=== PATIENT | female | born 1985 | race Caucasian/White ===

== ENCOUNTER 2024-09-22 10:35 | Outpatient (AMB) | payer OTHER, SELFPAY ==
--- NOTE | 2024-09-22 11:12 | MHC.OFFVIS ---
Vital Signs 09/22/24 11:19 Height 5 ft 2 in Weight 154 lb 1.65 oz BMI 28.2 BP 120/80 Blood Pressure Location Rt brachial Position Sitting Respiration 16 Pulse 64 Pulse Source Pulse Oximeter Pulse Oximetry (%) 97 Oxygen Delivery Method Room Air Intake Visit Reasons: Arthralgia Intake Note: Patient presents for Arthralgia. I feel joint pain and lower mid back pain. Feel pain on my neck, both shoulders and both knees. Tingling sensation on my neck sometimes. Allergies environmental allergies Allergy (Mild, Verified 09/22/24 11:10) Eye Swelling lorazepam Allergy (Mild, Verified 09/22/24 11:09) Confusion Atlvan Allergy (Mild, Uncoded 09/22/24 11:09) Headache Medication List - Last Reconciled 09/22/24 by Tray Alcocer MD linaclotide (Linzess) 290 mcg PO DAILY omeprazole 20 mg PO DAILY HPI HPI Arthralgia: Details: She was on HCQ, MTX and FA for diagnosis of spondyloarthritis with HLA b27 positivity by PA rheumatology actually did consult hospital. When the PA left practice, she saw a provider who took her off her DMARD regimen leading to knee swelling. She had a joint aspiration but was not restarted on DMARD therapy. For the last 2 years she has not seeked rheumatology care. She has stiffness in joints for months with knee swelling prior to seeing [facility] Rheumatology at [facility]. She was unable to move her joints. She continues to have pain and stiffness in her joints in her hands and her knees. She reports intermittent swelling in her knees. Lower back pain for 10 years and neck pain with tingling sensation. No buttocks pain or stiffness. No hx IBD. No iritis. No psoriasis. MS hours or can last all day. Using tylenol 650mg once or twice a day PRN pain. Takes Ibuprofen when pain is intense. She avoids NSAIDs due to exacerbation of underlying IBS. R hip pain (groin or lateral) is greater than left hip. Hx of recurrent knee 'sprain' presenting with knee swelling. When she was a teenager she used to have knee swelling that would occur spontaneously. She would be on crutches for at least a week and a half and the swelling would subside. She recalls using NSAIDs to help with knee pain and swelling. She denies mitral prolapse, uterine prolapse, aneurysms. Her maternal aunt may have SLE. PFSH Surgical History (Updated 09/22/24 @ 11:30 by EZRA Mackenzie) History of wisdom tooth extraction History of nasal surgery History of oral surgery History of breast surgery H/O adenoidectomy History of tonsillectomy History of section complicating Family History (Updated 09/22/24 @ 11:16 by EZRA Mackenzie) Mother Cancer Father Past heart attack Stroke Social History (Updated 09/22/24 @ 11:15 by EZRA Mackenzie) Household Members: Family Housing: House Alcohol intake: current Comment: [facility] Patient Tobacco Use Status: Current someday Tobacco user Cigarettes Per Day: 0.25 Years Smoked: 25 Review of Systems Const All systems reviewed & are unremarkable except as noted in HPI and below Physical Exam Vital Signs: Last Vital Signs Pulse 64 09/22/24 11:19 Resp 16 09/22/24 11:19 BP 120/80 09/22/24 11:19 Pulse Ox 97 09/22/24 11:19 Oxygen Delivery Method Room Air 09/22/24 11:19 BMI result Body Mass Index 28.2 Const Other: General: Comfortable CVS: RRR Respiratory: clear to auscultation bilaterally. Good respiratory effort Skin: No lesions seen MSK: [place] score 4 (bilateral passive apposition of thumbs to forearms, right passive hyperextension of 5th MCP greater than 90 degrees, bilateral active hyperextension of elbows greater than 10 degrees), tenderness of right 2nd MCP. No synovitis present. Good range of motion of upper extremities and lower extremities. Bilateral trochanteric bursa tenderness was found. Negative MAGALY. No MTP tenderness was found. Tender to palpate cervical spinous process or paraspinal muscles. Tender to palpate midthoracic to lower lumbar spinous process or paraspinal muscles. R SI joint tenderness. Assessment & Plan Assessment & Plan (1) Spondyloarthritis: Comment: She has history of HLA B27 positivity diagnosed with spondyloarthropathy presenting with joint stiffness, childhood swelling in knees and polyarthralgias previously treated with methotrexate and hydroxychloroquine with benefit in providing remission. At present she has polyarthralgias and stiffness with intermittent knee swelling. She meets criteria for benign hypermobility syndrome, which may be contributing to polyarthralgias. I will obtain labs and x-rays baseline to evaluate for disease activity. Code(s): M47.819 - Spondylosis without myelopathy or radiculopathy, site unspecified Category: Medical Plan: Labs ordered X-rays ordered Return to clinic in 1-2 months (2) Back pain: Comment: Chronic 10 year history without inflammatory features. We will obtain x-ray for further evaluation of joint pathology. Myofascial strain is contributing to pain. Code(s): M54.9 - Dorsalgia, unspecified Category: Medical Plan: X-rays ordered. (3) Neck pain: Comment: Acute onset neck pain lasting 3 weeks. Myofascial strain is contributing to pain. X-ray ordered to evaluate for joint pathology that may be contributing. Code(s): M54.2 - Cervicalgia Category: Medical Plan: X-ray C-spine ordered (4) Benign hypermobility syndrome: Comment: Discussed diagnosis and management. Code(s): M35.7 - Hypermobility syndrome Category: Medical Plan: She will continue to take Tylenol 1-2 tablets as needed for pain control. She will benefit from physical rehabilitation for joint strengthening We will await labs and x-ray prior to PT referral Return to clinic in 1-2 months (5) Trochanteric bursitis of both hips: Comment: She is experiencing lateral hip pain likely due to trochanteric bursitis. She also has intermittent groin pain. We will obtain x-ray for further evaluation of hip joint pathology contributing to her pain. Code(s): M70.61 - Trochanteric bursitis, right hip; M70.62 - Trochanteric bursitis, left hip Category: Medical Plan: She will benefit from PT for hip strengthening. I will obtain x-ray results of bilateral hips prior to ordering PT referral return to clinic in 1-2 months Orders: Orders XR lumbar spine 2-3V Today M54.9 - Dorsalgia, unspecified XR thoracic spine 2V Today M54.9 - Dorsalgia, unspecified XR knee standing BI Today M47.819 - Spondylosis without myelopathy or radiculopathy, site unspecified XR sacroiliac joint 1-2V Today M47.819 - Spondylosis without myelopathy or radiculopathy, site unspecified, M54.9 - Dorsalgia, unspecified XR cervical spine 3V Today M47.819 - Spondylosis without myelopathy or radiculopathy, site unspecified Creatinine Today M47.819 - Spondylosis without myelopathy or radiculopathy, site unspecified, M54.9 - Dorsalgia, unspecified DEZ Reflex Titer and Pattern Today M47.819 - Spondylosis without myelopathy or radiculopathy, site unspecified, M54.9 - Dorsalgia, unspecified Rheumatoid Factor Today M19.90 - Unspecified osteoarthritis, unspecified site, M47.819 - Spondylosis without myelopathy or radiculopathy, site unspecified, M54.9 - Dorsalgia, unspecified Alanine Aminotransferase Today M47.819 - Spondylosis without myelopathy or radiculopathy, site unspecified Aspartate Amino Transferase Today M47.819 - Spondylosis without myelopathy or radiculopathy, site unspecified, M54.9 - Dorsalgia, unspecified C Reactive Protein Today M47.819 - Spondylosis without myelopathy or radiculopathy, site unspecified, M54.9 - Dorsalgia, unspecified Erythrocyte Sedimentation Rate Today M19.90 - Unspecified osteoarthritis, unspecified site, M47.819 - Spondylosis without myelopathy or radiculopathy, site unspecified, M54.9 - Dorsalgia, unspecified Complete Blood Count Auto Diff Today M47.819 - Spondylosis without myelopathy or radiculopathy, site unspecified, M54.9 - Dorsalgia, unspecified HLA B27 Today M19.90 - Unspecified osteoarthritis, unspecified site, M47.819 - Spondylosis without myelopathy or radiculopathy, site unspecified, M54.9 - Dorsalgia, unspecified Cyclic Citrullinated Peptide Today M19.90 - Unspecified osteoarthritis, unspecified site, M47.819 - Spondylosis without myelopathy or radiculopathy, site unspecified Sjogren's Antibodies Today H04.123 - Dry eye syndrome of bilateral lacrimal glands, R68.2 - Dry mouth, unspecified XR hips DOROTHY min 3V Today M25.559 - Pain in unspecified hip Coding Level of Care Code New Pt Level 4 (54440) Diagnoses Spondyloarthritis M47.819 Back pain M54.9 Neck pain M54.2 Benign hypermobility syndrome M35.7 Trochanteric bursitis of both hips M70.61; M70.62
[2024-09-22 11:19] VITALS: BP 120/80; PULSE 64; RESP 16; O2SAT 97; BMI 28.2
== END 2024-09-22 12:17 | disposition home or self-care (01) ==
PROVIDERS: PCP Internal Medicine; Visit Provider Internal Medicine Rheumatology
DX: M47.819 Spondylosis without myelopathy or radiculopathy, site unspecified (principal); M54.9 Dorsalgia, unspecified; M54.2 Cervicalgia; M35.7 Hypermobility syndrome; M70.61 Trochanteric bursitis, right hip; M70.62 Trochanteric bursitis, left hip
CPT/HCPCS: 99204

== ENCOUNTER 2024-11-20 10:09 | Outpatient (REF) | payer OTHER, SELFPAY ==
--- NOTE | ~2024-11-20 | XR_ITS ---
EXAMINATION: XR LUMBOSACRAL SPINE CLINICAL INFORMATION: M54.9 - Dorsalgia, unspecified COMPARISON: None available. TECHNIQUE: Three views of the lumbosacral spine. FINDINGS: There is normal lumbar lordosis. The vertebral heights, alignment and disc heights are normal. No visible acute fracture, dislocation or subluxation seen. No bony erosive changes. The soft tissues are normal. XR/XR lumbar spine 2-3V IMPRESSION: Unremarkable lumbar spine exam. Electronically signed by: Tank Fajardo MD 11/30/2024 10:12 AM [facility] GARCÍA
--- NOTE | ~2024-11-20 | XR_ITS ---
EXAMINATION: XR KNEE AP STANDING CLINICAL INFORMATION: M47.819 - Spondylosis without myelopathy or radiculopathy, site unspecified ; knee pain. COMPARISON: None available. TECHNIQUE: AP bilateral standing view of the knees was obtained. FINDINGS: No fracture or dislocation. Alignment is anatomic. Joint spaces are maintained. Normal-appearing soft tissues. XR/XR knee standing BI IMPRESSION: Normal AP view bilateral knees. Electronically signed by: Pacheco Roberson MD 11/30/2024 10:55 AM [facility]
--- NOTE | ~2024-11-20 | XR_ITS ---
EXAMINATION: XR BILATERAL HIPS CLINICAL INFORMATION: M25.559 - Pain in unspecified hip COMPARISON: None available. TECHNIQUE: AP and lateral views of each hip were obtained. FINDINGS: There is no fracture, dislocation, or suspicious bone lesion in either hip joint. There is normal alignment. There is mild prominence of the posterior acetabular coverage bilaterally, which can relate to FREDERICK. Otherwise, normal joint spaces bilaterally. Normal soft tissues. XR/XR hip DOROTHY min 3V IMPRESSION: 1. Normal appearing bilateral hip joints. See above. Electronically signed by: Pacheco Roberson MD 11/30/2024 10:53 AM [facility]
--- NOTE | ~2024-11-20 | XR_ITS ---
EXAMINATION: XR SACROILIAC JOINTS CLINICAL INFORMATION: M47.819 - Spondylosis without myelopathy or radiculopathy, site unspecified COMPARISON: None available. TECHNIQUE: 3 views of the sacroiliac joints FINDINGS: There is normal symmetry of bilateral SI joints without bony erosive changes or sclerosis. No fracture or dislocation seen involving the ileum or the sacral bones. The soft tissues are normal. XR/XR sacroiliac joint 1-2V IMPRESSION: Normal sacroiliac joints. Electronically signed by: Tank Fajardo MD 11/30/2024 10:11 AM [facility]
--- NOTE | ~2024-11-20 | XR_ITS ---
EXAMINATION: XR THORACIC SPINE CLINICAL INFORMATION: M54.9 - Dorsalgia, unspecified COMPARISON: None available. TECHNIQUE: 3 views of the thoracic spine were obtained. FINDINGS: There is no fracture or bone destruction seen and the vertebral alignment is normal. There is no disc space narrowing. There is no abnormality of the paraspinal soft tissues. XR/XR thoracic spine 2V IMPRESSION: Unremarkable dorsal spine examination. Electronically signed by: Tank Fajardo MD 11/30/2024 10:09 AM [facility]
--- NOTE | ~2024-11-20 | XR_ITS ---
EXAMINATION: XR CERVICAL SPINE CLINICAL INFORMATION: M47.819 - Spondylosis without myelopathy or radiculopathy, site unspecified COMPARISON: None available. TECHNIQUE: 5 views of the cervical spine were obtained. FINDINGS: There are no prevertebral soft tissue or bony abnormalities demonstrated. No compression fractures or subluxations are identified. Alignment is maintained at the atlanto-axial articulation. The disc spaces are preserved. No endplate changes are seen. The prevertebral soft tissues are normal. The foramina are patent. XR/XR cervical spine 3V IMPRESSION: Unremarkable cervical spine examination. Electronically signed by: Tank Fajardo MD 11/30/2024 10:10 AM [facility]
--- OUTSIDE RECORDS SUMMARY | 2024-11-20 10:13 | XMS_ITS | Clinical Summary ---
Author Organization [facility] Facility Address [address] [address] Care Team Providers Care Yard Coordinator Name Role Phone Rachana Brown MD Primary Care Provider Allergies Active Allergy Reactions Criticality Noted Date Comments Lorazepam Other (see comments) 04/25/2021 memory loss Prochlorperazine 09/23/2018 Sumatriptan 09/23/2018 Medications folic acid (FOLVITE) 1 MG tablet Take 1,000 mcg by mouth daily 11/16/2020 Active hydroxychloroqui ne (PLAQUENIL) 200 MG tablet Take 200 mg by mouth twice a day 11/16/2020 Active methotrexate 2.5 MG tablet Take 6 pills PO q week on the same day of the week. 11/16/2020 Active midodrine (PROAMATINE) 2.5 MG tablet Take 1 tablet (2.5 mg total) by mouth 3 (three) times a day 90 tablet 3 06/01/2021 Active Linzess 290 MCG capsule Take 1 tablet by mouth 1 (one) time each day 08/03/2021 Active Senexon-S 8.6-50 MG per tablet Take 1 tablet by mouth if needed 08/03/2021 Active Emgality 120 MG/ML solution auto-injector every 30 (thirty) days 07/25/2021 Active Active Problems Problem Noted Date Diagnosed Date ACTH deficiency 08/17/2021 Hypotension, not otherwise specified 06/01/2021 Insomnia 02/09/2021 Anemia 02/09/2021 Disorder of joint of spine 11/16/2020 Overview (02/02/2021): Last Assessment & Plan: Restart Plaquenil 200 mg Take 2 pills PO daily. Restart Methotrexate 2.5 mg Take 6 pills PO q week. Restart Folic acid 1 mg PO daily. Dry eyes 12/24/2018 Overview (02/02/2021): Last Assessment & Plan: Continue OTC therapy for eye dryness as needed. Human leukocyte antigen B27 detected 10/21/2018 Low back pain 10/21/2018 Overview (02/02/2021): Last Assessment & Plan: Tylenol Arthritis as needed every 8 hours. Gentle stretching, strengthening exercises. Neck pain 10/21/2018 Overview (02/02/2021): Last Assessment & Plan: Tylenol Arthritis as needed every 8 hours. Gentle stretching, strengthening exercises. 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 Hypotension Elevated blood-pressure read ing without diagnosis of hypertension Mass of right adrenal gland Resolved Problems Problem Noted Date Diagnosed Date Resolved Date Hypotension, not otherwise specified 08/17/2021 08/17/2021 Family History Medical History Relation Comments Brain cancer Cousin Coronary artery disease Father Hypertension Father Stroke Father Colonic polyp Mother Hereditary non-polyposis colon cancer Mother Lung cancer Mother Breast cancer Other 1 Cancer Other 1 Cancer Other 2 Coronary artery disease Other 2 Relation Status Comments Cousin Other Father Mother Other 1 Other Other 2 Other Social History Tobacco Use Types Packs/Day Years Used Date Smoking Tobacco: Former Cigarettes Q uit: 12/25/2020 Smokeless Tobacco: Never Alcohol Use Standard Drinks/Week Comments Yes 0 (1 standard drink = 0.6 oz pur e alcohol) 1-2 times per month Comments Unknown Sex and Gender Information Value Date Recorded Sex Assigned at Not on file Legal Sex Female 12:03 PM EST Gender Identity Not on file Sexual Orientation Not on file Last Filed Vital Signs Vital Sign Reading Time Taken Comments Blood Pressure 118/82 08/17/2021 9:12 AM EDT Pulse 90 08/17/2021 9:12 AM EDT Temperature - - Respiratory Rate - - Oxygen Saturation 99% 08/17/2021 9:12 AM EDT Inhaled Oxygen Concentration - - Weight 61.2 kg (135 lb) 08/17/2021 9:12 AM EDT Height 157.5 cm (5' 2 ) 08/17/2021 9:12 AM EDT Body Mass Index 24.69 08/17/2021 9:12 AM EDT Plan of Treatment Health Maintenance Due Date Last Done Comments Pneumococcal Vaccine: Pediat rics (0 to 5 Years) and At-Risk Patients (6 to 64 Years) (1 of 2 - PCV) 1990 Hepatitis B Vaccine (1 of 3 - 19+ 3-dose series) 2003 Influenza Vaccine (#1) 2024 0, 07/17/2017, 10/01/2010, Additional history exists Insurance COMPREHENSIVE BENEFITS COMPREHENSIVE BENEFITS Care Teams Yard Coordinator Relationship Specialty Start Date End Date Rachana Brown MD [address] [place] [address] PCP - General Internal Medicine 02/26/21
--- OUTSIDE RECORDS SUMMARY | 2024-11-20 10:13 | XMS_ITS | Encounter Summary ---
Author Organization [facility] Address [address] [facility] [address] [place] [address] Phone Care Team Providers Care Biometrics Specialist Name Role Phone Rachana Brown MD Primary Care Provider Encounter Details Date Type Department Care Team (Late st Contact Info) Description 02/21/2021 Orders Only [facility] [address] [place] [address] Taco Fu MD [address] [facility] [address] [place] [id number] Other hypotension; Elevated blood-pressure reading without diagnosis of hypertension Social History Tobacco Use Types Packs/Day Years [...] on file Sexual Orientation Not on file COVID-19 Exposure Response Date Recorded In the last month, have you been in contact with someone who was confirmed or suspected to have Coronavirus / COVID-19? No / Unsure 02/15/2021 1:23 PM EDT documented as of this encounter Plan of Treatment Not on file documented as of this encounter Visit Diagnoses Diagnosis Other hypotension Elevated blood-pressure reading without diagnosis of hypertension documented in this encounter Care Teams Biometrics Specialist Relationship Specialty Start Date End Date Rachana Brown MD [address] [place], [place] PCP - General Internal Medicine 02/26/21 documented as of this encounter
[2024-11-20 11:10] LABS: MANUAL DIFF FLAG NO
[2024-11-20 11:29] LABS: Basophils Absolute Auto 0.1 X10*3/uL (0.0-0.2); Basophils Percent Auto 0.6 % (0-2); Eosinophils Absolute Auto 0.4 X10*3/uL (0.0-0.4); Eosinophils Percent Auto 4.8 % (0-4); Hematocrit 36.9 % (37.0-47.0); Hemoglobin 12.8 g/dl (12.0-16.0); Imm Gran Abs Auto 0.02 X10*3/uL (0.00-0.03); Imm Gran Pct Auto 0.3 % (0.0-0.4); Lymphocytes Absolute Auto 2.1 X10*3/uL (1.2-4.9); Lymphocytes Percent Auto 26.6 % (20-40); Mean Corpuscular HGB Conc 34.7 g/dl (31.0-35.0); Mean Corpuscular Hemoglobin 31.3 pg (27.0-33.0); Mean Corpuscular Volume 90.2 fL (80.0-98.0); Mean Platelet Volume 9.3 fL (9.4-12.3); Monocytes Absolute Auto 0.5 X10*3/uL (0.1-1.2); Neutrophils Absolute Auto 4.7 x10*3/uL (2.0-8.3); Neutrophils Percent Auto 60.7 % (45-73); Platelet Count 278 X10*3/uL (160-400); Red Blood Count 4.09 X10*6/uL (4.20-5.50); Red Cell Distribution Width 12.4 % (11.0-16.0); White Blood Count 7.8 X10*3/uL (4.8-10.8)
[2024-11-20 11:50] LABS: Rheumatoid Factor < 13.0 IU/mL (<15.0)
[2024-11-20 12:01] LABS: Alanine Aminotransferase 15 U/L (0-31); Aspartate Amino Transferase 13 U/L (5-31); C Reactive Protein < 0.10 mg/dL (< or = 0.50); Estimated Glomerular Filt Rate > 60
[2024-11-20 12:13] LABS: Erythrocyte Sedimentation Rate 4 MM/HR (0-20)
[2024-11-22 21:32] LABS: Antibody to SS-A Antigen <1.0 NEG AI (<1.0 NEG); Antibody to SS-B Antigen <1.0 NEG AI (<1.0 NEG)
[2024-11-24 08:23] LABS: Anti Nuclear Antibody Screen NEGATIVE (NEGATIVE)
[2024-11-25 02:02] LABS: HLA B27 Positive (Negative)
[2024-11-25 17:43] LABS: Cyclic Citrullinated Peptide <16 UNITS
== END 2024-11-20 10:10 | disposition home or self-care (01) ==
LOC: HO.XRAY 10:09
PROVIDERS: PCP Internal Medicine; Visit Provider Internal Medicine Rheumatology
DX: M54.9 Dorsalgia, unspecified (principal); M47.819 Spondylosis without myelopathy or radiculopathy, site unspecified; M25.559 Pain in unspecified hip; M19.90 Unspecified osteoarthritis, unspecified site; H04.123 Dry eye syndrome of bilateral lacrimal glands; R68.2 Dry mouth, unspecified
CPT/HCPCS: 36415; 72040; 72070; 72100; 72200; 73522; 73565; 82565; 84450; 84460; 85025; 85652; 86038; 86140; 86200; 86235; 86431; 86812

== ENCOUNTER → 2024-11-20 10:26 | Outpatient (BNV) | payer OTHER, SELFPAY | PROVIDERS: PCP Internal Medicine; Visit Provider Radiology Diagnostic Radiology | DX: M25.559 Pain in unspecified hip (principal); M47.819 Spondylosis without myelopathy or radiculopathy, site unspecified; M54.50 Low back pain, unspecified; M54.6 Pain in thoracic spine; M25.569 Pain in unspecified knee | CPT/HCPCS: 72040; 72070; 72100; 72200; 73522; 73565 ==